=== PATIENT | female | born 1960 | race African-American/Black ===

== ENCOUNTER 2023-05-08 22:48 | Observation (INO) | payer OTHER ==
[2023-05-09 00:55] LABS: #Basophils 0.1 thou/uL (0.0-0.2); #Eosinphils 0.1 thou/uL (0.0-0.7); #Monocytes 0.5 thou/uL (0.11-0.59); #Neutrophils 3.4 thou/uL (1.40-6.50); %Basophils 0.6 % (0.0-1.0); %Lymphocytes 49.1 % (21.0-51.0); %Monocytes 6.7 % (0.0-10.0); %Neutrophils 42.5 % (42.0-75.0); Hematocrit 42.9 % (36.0-47.0); Hemoglobin 14.1 g/dL (12.0-16.0); Mean Corpuscular HGB CONC 32.9 g/dL (32.0-36.0); Mean Corpuscular Hemoglobin 28.6 pg (27.0-31.0); Platelet Count 243 10x3/uL (130-400); RBC Distribution Width 13.6 % (11.5-14.5); Red Blood Cell (RBC) Count 4.93 mill/uL (4.20-5.40)
[2023-05-09 01:20] LABS: ALT (SGPT) 13 U/L (8-55); AST (SGOT) 14 U/L (5-34); Alkaline Phosphatase 106 U/L (40-110); Anion Gap 16 mmol/L (10-20); BUN (Urea Nitrogen) 17 mg/dL (9.8-20.1); Bilirubin, Total 0.5 mg/dL (0.2-1.2); Calc. Creatinine Clearance 0 mL/min (70-130); Calcium 9.3 mg/dL (7.8-10.44); Carbon Dioxide 19 mmol/L (23-31); Chloride 108 mmol/L (98-107); Estimated GFR 73; Globulin 3.5 g/dL (2.4-3.5); Glucose 114 mg/dL (80-115); Magnesium 2.5 mg/dL (1.6-2.6); Potassium 3.6 mmol/L (3.5-5.1); Protein, Total 7.5 g/dL (5.8-8.1); Sodium 139 mmol/L (136-145)
[2023-05-09 01:23] LABS: Troponin I Less than 0.010 ng/mL (< 0.028)
[2023-05-09] MEDS ORDERED: Magnesium 2 GM/50 ML BAG (IN WATER) ONE (02:16)
[2023-05-09 02:53] LABS: Bacteria/HPF None Seen HPF (None Seen); Bilirubin Negative (Negative); Blood, Urine Negative (Negative); CAUTI Indications for Culture < 2yrs of age; Clarity Clear (Clear); Glucose, Urine (Dipstick) Normal (Negative); Ketone, Urine Negative (Negative); Leukocyte 25 Leu/uL (Negative); Nitrite Negative (Negative); Protein, Urine (Dipstick) Negative (Neg-Trace); RBC/HPF 0-3 HPF (0-3); Specific Gravity, Urine 1.021 (1.002-1.036); Squamous Epithelial 0-3 HPF (0-3); Urobilinogen 3 mg/dL (Less than 2); WBC/HPF 0-3 HPF (0-3); pH, Urine 5.5 (5.0-9.0)
[2023-05-09 02:55] LABS: Urine Culture Reflex Yes Yes
[2023-05-09 03:16] LABS: Thyroid Stimulating Hormone 0.5811 uIU/mL (0.35-4.94)
[2023-05-09] MEDS ORDERED: Potassium Chloride 20 MEQ TAB PO SCH (04:30)
[2023-05-09] MEDS ORDERED: Potassium Chloride 20 MEQ TAB ONE (04:47)
[2023-05-09] MEDS ORDERED: cefTRIAXone (ROCEPHIN) 1 GM VIAL ONE (05:32)
[2023-05-09] MEDS ORDERED: Sodium Chloride 0.9% 0 ML ONE (05:32)
[2023-05-09] MEDS: Nitroglycerin 2% Ointment 1 INCH/1 GM Packet TOP SCH ×3 (05:44→23:38)
[2023-05-09] MEDS: cefTRIAXone\\ROCEPHIN 1 GM in Sodium Chloride 0.9% 100 ML IVPB SCH (05:44)
[2023-05-09 05:51] LABS: Troponin I Less than 0.010 ng/mL (< 0.028)
[2023-05-09 05:55] LABS: Free T4 (Free Thyroxine) 1.06 ng/dL (0.70-1.48)
[2023-05-09 08:06] LABS: Troponin I 0.014 ng/mL (< 0.028)
[2023-05-09] MEDS ORDERED: Enoxaparin 40 MG (0.4 mL) SYRINGE ONE (09:54)
[2023-05-09] MEDS ORDERED: Aspirin Chewable 81 MG TAB ONE (09:54)
[2023-05-09] MEDS: Enoxaparin 40 MG (0.4 mL) SYRINGE SC SCH (09:55)
[2023-05-09] MEDS: Aspirin Chewable 81 MG TAB PO SCH (09:55)
[2023-05-09] MEDS ORDERED: Iopamidol 370 76% 100 ML VIAL ONE (13:17)
[2023-05-09 18:41] VITALS: BMI 34.4
[2023-05-10] MEDS: cefTRIAXone\\ROCEPHIN 1 GM in Sodium Chloride 0.9% 100 ML IVPB SCH (05:48)
[2023-05-10] MEDS: Nitroglycerin 2% Ointment 1 INCH/1 GM Packet TOP SCH ×3 (05:49→21:19)
[2023-05-10 07:14] LABS: #Eosinphils 0.1 thou/uL (0.0-0.7); #Monocytes 0.4 thou/uL (0.11-0.59); %Basophils 0.6 % (0.0-1.0); %Eosinophils 2.1 % (0.0-10.0); %Lymphocytes 50.7 % (21.0-51.0); %Monocytes 8.6 % (0.0-10.0); Hematocrit 42.2 % (36.0-47.0); Hemoglobin 13.6 g/dL (12.0-16.0); Mean Corpuscular HGB CONC 32.2 g/dL (32.0-36.0); Mean Corpuscular Hemoglobin 28.2 pg (27.0-31.0); Mean Corpuscular Volume 87.4 fl (78.0-98.0); Mean Platelet Volume 10.3 fL (7.4-10.4); Platelet Count 245 10x3/uL (130-400); RBC Distribution Width 13.7 % (11.5-14.5); Red Blood Cell (RBC) Count 4.83 mill/uL (4.20-5.40); White Blood Cell (WBC) Count 5.1 10x3/uL (4.8-10.8)
[2023-05-10 07:42] LABS: ALT (SGPT) 11 U/L (8-55); AST (SGOT) 12 U/L (5-34); Alkaline Phosphatase 101 U/L (40-110); Anion Gap 14 mmol/L (10-20); BUN (Urea Nitrogen) 14 mg/dL (9.8-20.1); Bilirubin, Total 0.6 mg/dL (0.2-1.2); Calc. Creatinine Clearance 107 mL/min (70-130); Calcium 9.3 mg/dL (7.8-10.44); Carbon Dioxide 21 mmol/L (23-31); Cardiac Risk 4.8 (Less than 4.5); Chloride 107 mmol/L (98-107); Cholesterol 187 mg/dl (< 200 Desired); Estimated GFR 89; Globulin 3.4 g/dL (2.4-3.5); Glucose 101 mg/dL (80-115); HDL Cholesterol 39 mg/dL (>60 Neg Risk); LDL Cholesterol, Calculated 132 mg/dL; Magnesium 1.9 mg/dL (1.6-2.6); Potassium 4.3 mmol/L (3.5-5.1); Protein, Total 7.4 g/dL (5.8-8.1); Sodium 138 mmol/L (136-145); Triglycerides 80 mg/dL (Less than 150)
[2023-05-10] MEDS: Aspirin Chewable 81 MG TAB PO SCH (09:05)
[2023-05-10] MEDS: Enoxaparin 40 MG (0.4 mL) SYRINGE SC SCH (09:06)
[2023-05-11] MEDS: cefTRIAXone\\ROCEPHIN 1 GM in Sodium Chloride 0.9% 100 ML IVPB SCH (05:00)
[2023-05-11] MEDS: Nitroglycerin 2% Ointment 1 INCH/1 GM Packet TOP SCH (05:51)
[2023-05-11 07:55] VITALS: BP 117/85; TEMP 97.9
[2023-05-11] MEDS: Aspirin Chewable 81 MG TAB PO SCH (08:21)
[2023-05-11] MEDS: Enoxaparin 40 MG (0.4 mL) SYRINGE SC SCH (08:21)
== END 2023-05-11 12:14 | disposition home or self-care (01) ==
LOC: ERS 22:48 → ERHOLD 05-09 03:34 → 2SW 05-09 18:38
PROVIDERS: ADMIT Internal Medicine; ATTEND Student in an Organized Health Care Education/Training Program
DX: I48.91 Unspecified atrial fibrillation (principal); I45.81 Long QT syndrome; I11.0 Hypertensive heart disease with heart failure; I50.30 Unspecified diastolic (congestive) heart failure; R00.2 Palpitations; Z79.82 Long term (current) use of aspirin; Z79.899 Other long term (current) drug therapy
CPT/HCPCS: 36415; 71045; 71275; 74177; 80053; 80061; 81001; 83735; 83880; 84439; 84443; 84481; 84484; 85025; 87086; 93005; 93306; 94760; 96365; 96367; 96372; 96376; G0378; J0696; J1650; J3475; J3490; Q9967